=== PATIENT | female | born 1960 | race Caucasian/White ===

== ENCOUNTER → 2018-04-07 09:35 | Outpatient (CLI) | payer OTHER, SELFPAY ==
--- NOTE | 2018-04-07 | DI.RAD.S_ITS ---
PROCEDURE: XR KNEE LT 3V INDICATIONS: LEFT KNEE PAIN TECHNIQUE: 3 views of the knee were acquired. COMPARISON: None. FINDINGS: Bones: No fractures or dislocations. No suspicious bony lesions. There is minimal osteophytosis. Joint spaces appear grossly preserved. Soft tissues: No joint effusion. No suspicious soft tissue calcifications. IMPRESSION: 1. Minimal osteophytosis compatible with minimal osteoarthritic changes. 2. No fracture or dislocation. Dictated by: Sammy Dutton M.D. on 04/07/2018 at 11:04 Approved by: Sammy Dutton M.D. on 04/07/2018 at 11:05
== END ==
PROVIDERS: Visit Provider Chiropractor
DX: M25.562 Pain in left knee (principal)
CPT/HCPCS: 73562

== ENCOUNTER → 2018-07-23 13:39 | Outpatient (CLI) | payer OTHER, SELFPAY ==
--- NOTE | 2018-07-23 | DI.MRI.S_ITS ---
PROCEDURE: MR KNEE LT WO CON INDICATIONS: LT KNEE INJURY TECHNIQUE: Noncontrast sagittal PD fast spin echo and T2 fast spin echo with fat saturation, sagittal 3-D FLASH with fat saturation; coronal T1 spin echo and PD fast spin echo with fat saturation, and axial PD fast spin echo with fat saturation through the knee. COMPARISON: [facility], CR, XR KNEE LT 3V, 04/07/2018, 9:38. FINDINGS: Image quality: Excellent. Menisci: Lateral meniscal tear involving posterior horn and body. There is also near-complete extrusion of the body. Abnormal signal extends to the undersurface of the posterior horn of the superior articular surface free margin of the body. Medial meniscal tear involving the posterior horn and body with abnormal signal extending to the undersurface of the posterior horn and superior articular surface of the body. There is partial extrusion. 6 mm parameniscal cyst on image 10 series 7 Cruciate ligaments: Partial rupture of the anterior cruciate ligament however this is technically age indeterminate. The posterior cruciate ligament appears intact. Medial structures: The medial collateral ligament appears intact. The posterior oblique ligament, semimembranosus tendon insertions, oblique popliteal ligament, and meniscocapsular junction appear intact. Visualized portions of the pes anserinus tendons appear normal. No abnormal bursal fluid. Lateral structures: There is susceptibility artifact present in the region of the lateral patellofemoral ligament of unknown etiology, possibly postsurgical changes, versus foreign bodies. The lateral collateral ligament, long and short heads of the biceps femoris tendon appear intact. The popliteus tendon appears normal; the popliteofibular ligament appears intact. The posterosuperior and anteroinferior popliteomeniscal fascicles appear intact. The arcuate and fabellofibular ligaments appear intact, on either side of the lateral inferior geniculate artery. Iliotibial band appears normal. Anterior structures: The quadriceps and patellar tendons appear intact although there is low-grade proximal patellar tendinopathy. Patellar alignment is normal. No femoral trochlear dysplasia or ventral trochlear prominence. No edema in the infrapatellar fat pad. Bones and cartilage: No bone marrow contusions or fractures. Within the medial compartment, there is no definite focal articular cartilage loss. Within the lateral compartment, there is diffuse partial-thickness loss of the femoral and tibial articular cartilage. Within the patellofemoral compartment, there is diffuse partial-thickness loss of the femoral trochlear and patellar cartilage Joint space: There is physiologic knee joint fluid. Tiny 1-2 cm cephalocaudad dimension Conley's cyst. IMPRESSION: Lateral meniscal tear involving the posterior horn and body. Near-complete extrusion of the body. Medial meniscal tear also involving the posterior horn and body with partial extrusion. 6 mm parameniscal cyst adjacent to the posterior horn High-grade partial rupture of the anterior cruciate ligament although this could be acute or chronic; please correlate with exam findings and history. Mild proximal patellar tendinopathy. Tiny Conley cyst. Mild joint degeneration. Dictated by: Tito Eden M.D. on 07/23/2018 at 14:11 Approved by: Tito Eden M.D. on 07/23/2018 at 14:20
== END ==
PROVIDERS: PCP Orthopaedic Surgery Foot and Ankle Surgery; Visit Provider Orthopaedic Surgery Foot and Ankle Surgery
DX: S83.242A Other tear of medial meniscus, current injury, left knee, initial encounter (principal); S83.282A Other tear of lateral meniscus, current injury, left knee, initial encounter; S83.512A Sprain of anterior cruciate ligament of left knee, initial encounter; M17.12 Unilateral primary osteoarthritis, left knee; M67.864 Other specified disorders of tendon, left knee
CPT/HCPCS: 73721

== ENCOUNTER → 2022-04-22 13:14 | Outpatient (CLI) | payer OTHER, SELFPAY ==
--- NOTE | 2022-04-22 13:15 | DI.MRI.S_ITS ---
PROCEDURE: MR LUMBAR SPINE WO CON INDICATIONS: Lumbar radiculopathy history of L3 fracture TECHNIQUE: Noncontrast sagittal T1 spin echo and T2 fast echo, sagittal STIR, and T2 fast spin echo through the lumbar spine. In cases with scoliosis, additional coronal T2 fast spin echo may be performed. COMPARISON: None. FINDINGS: Image quality: This examination is limited by involuntary motion artifact. Alignment and Curvature: Mild dextroconvex scoliotic curvature is seen. Minimal anterolisthesis is seen at T11-T12: There is mild retrolisthesis seen at the L2-L3 level. Minimal retrolisthesis is seen at L4-L5. Minimal anterolisthesis is seen at L5-S1. Bone Marrow: Marrow is of normal overall signal. No acute vertebral body compression fractures. Spinal Cord: Conus medullaris terminates at the L1-L2 level. Visualized cord demonstrates normal signal and size. Note is made of fatty infiltration of the filum terminalis a, as seen on series 4, image 10 and on series 7, image 20. No associated cord tethering is seen. Paraspinous Soft Tissues: No paravertebral masses. T11-T12: Mild loss of disc height is seen. The disc signal is relatively well preserved. There is at least moderate right-sided and moderate left-sided facet hypertrophy seen. There is at least moderate right-sided and no significant left-sided neural foraminal narrowing. No significant central canal narrowing is seen. T12-L1: Normal appearance. L1-L2: Normal appearance. L2-L3: Moderate loss of disc height is seen. Loss of disc signal is seen. Moderate generalized disc bulge is seen. Bridging endplate osteophytes can be seen on the left, as on series 6, image 7. There is mild right-sided and tetq-nm-fjhopisd left-sided facet hypertrophy. There is gfsl-[id number]-[id number] right-sided and moderate to severe left-sided neural foraminal narrowing. There is a degree of compression seen upon the exiting left L2 nerve root. Moderate central canal narrowing is seen. L3-L4: Mild loss of disc height is seen. Loss of disc signal is seen. Reactive marrow endplate changes are seen, which demonstrate mixed T1 weighted and T2-weighted signal, and are attributed to a combination of edema and fatty metaplasia (Modic type I and Modic type II changes). Moderate generalized disc bulge is seen. There is mild right-sided and moderate left-sided facet hypertrophy seen. There is at least moderate right-sided and moderate to severe left-sided neural foraminal narrowing. There is a degree of compression seen upon the exiting left L3 nerve root. Moderate central canal narrowing is seen. L4-L5: Moderate loss of disc height is seen. Loss of disc signal is seen. Reactive marrow endplate changes are seen, which are hyperintense on T1-weighted and T2-weighted imaging and most consistent with fatty metaplasia (Modic type II changes). Moderate disc bulge is seen, which is eccentric to the right. At least moderate facet hypertrophy is seen. There is moderate left-sided and moderate to severe right-sided neural foraminal narrowing. There is a degree of compression seen upon the exiting right L4 nerve root. Mild to moderate central canal narrowing is seen. L5-S1: Moderate to severe loss of disc height and disc signal can be seen. Reactive marrow endplate changes are seen, which demonstrate mixed T1 weighted and T2-weighted signal, and are attributed to a combination of edema and fatty metaplasia (Modic type I and Modic type II changes). Moderate generalized disc bulge is seen. Mild to moderate facet hypertrophy is seen. There is swfb-jn-cjotqozd left-sided and at least moderate right-sided neural foraminal narrowing. There is a minimal degree of compression seen upon the exiting right L5 nerve root. No significant central canal narrowing is seen. IMPRESSION: Multiple levels of relatively prominent lumbar spine degenerative change can be seen. Several sites of significant neural foraminal narrowing can be seen, with associated exiting nerve root compression. Mild dextroconvex scoliotic curvature is seen. Dictated by: Tyrell Fisher M.D. on 04/22/2022 at 15:08 Approved by: Tyrell Fisher M.D. on 04/22/2022 at 15:14
== END ==
PROVIDERS: PCP Naturopath; Referring Provider Physical Medicine & Rehabilitation; Visit Provider Physical Medicine & Rehabilitation
DX: S32.030A Wedge compression fracture of third lumbar vertebra, initial encounter for closed fracture (principal); M47.26 Other spondylosis with radiculopathy, lumbar region; M48.061 Spinal stenosis, lumbar region without neurogenic claudication; M41.9 Scoliosis, unspecified
CPT/HCPCS: 72148

== ENCOUNTER 2022-09-13 10:07 | Outpatient (CLI) | payer OTHER, SELFPAY ==
[2022-09-13] VITALS (9 sets, daily range): BP systolic 152–170; BP diastolic 83–96; PULSE 66–79; RESP 16–21; TEMP 36.6; O2SAT 97–100
--- NOTE | 2022-09-13 10:08 | DI.RAD.S_ITS ---
PROCEDURE: PAIN L INTERLAMINAR/CAUDAL INJ INDICATIONS: SPONDYLOSIS COMPARISON: None. FINDINGS: Fluoroscopic spot filming was performed to verify placement of spinal needles at the lower lumbar level(s), as labeled on the films. Appropriate location(s) of the needle tip(s) was confirmed by injection of iodinated contrast. IMPRESSION: Needle placement as above Dictated by: Chaparro Marcano M.D. on 09/13/2022 at 12:44 Transcribed by: IRIS on 09/13/2022 at 12:45 Approved by: Chaparro Marcano M.D. on 09/13/2022 at 16:45
[2022-09-13] MEDS: MIDAZOLAM 2 MG/2 ML VIAL IV (11:22)
[2022-09-13] MEDS: BUPIVACAINE 0.25% (PF) VIAL 5 ML SUBCUT (11:27)
[2022-09-13] MEDS: BETAMETHASONE 30 MG/5 ML MDV 6 MG INJ (11:27)
[2022-09-13] MEDS: DEXAMETHASONE 10 MG/ML VIAL 20 MG INJ (11:28)
[2022-09-13] MEDS: IOPAMIDOL 15 ML VIAL 3 ML INJ (11:29)
--- NOTE | 2022-09-13 11:35 | P.PCN_ITS ---
Date/Time/Diagnoses Date of procedure: 09/13/22 Time of procedure: 11:35 Pre-procedure diagnosis: 1. HNP WITH RADICULAR FEATURES, 2. MULTILEVEL CENTRAL STENOSIS, Post-procedure diagnosis: same Procedure Notes Procedure: 1. FLUOROSCOPICALLY GUIDED CONTRAST CONTROLLED INTERLAMINAR EPIDURAL STEROID INJECTION -L4/5 Indications: Sharri is referred by Dr. Leblanc for treatment of Bilateral Foraminal Stenosis R>L LE symptoms. Physician: Lokesh Meza Total Fluoroscopy time (seconds): 6 Total sedation minutes: 10 Complications: none Procedure in detail & Post-procedure care: FINDINGS Multilevel Central Spinal Stenosis with Nerve Root Compression DESCRIPTION OF PROCEDURE Fluoroscopically guided, contrast-controlled L4/5 translaminar epidural steroid injection. Following review of allergy and review of potential side effects and complications, including, but not necessarily limited to, infection, allergic reaction, local tissue breakdown, temporary as well as permanent nerve injury, paralysis, stroke and possible , the patient indicated that the patient understood and agreed to proceed. An informed consent document was signed by the patient, witnessed by a nurse, and placed in the patient's chart. Additionally, other treatment options including modalities, medications, and physical therapy were reviewed with the patient. After review of previous anaesthesic history and IV conscious sedation the patient was deemed safe to proceed with today?s procedure with IV conscious sedation as ASA class II designation. Safety time-out was performed to confirm patient ID, procedure to be performed and site of procedure. IV sedation was accomplished with a combination of 2mg of Versed was administered by the RN after DO order, titrated to patient comfort during the course of the procedure while the patient remained responsive to all verbal commands In the prone position, following sterile prep and drape of the lumbar region, the L4/5 translaminar space was identified fluoroscopically. The skin was anesthetized via a 25-gauge, 1.5inch needle with 1% lidocaine solution. At this point, a 22-gauge short bevel spinal needle was atraumatically introduced and advanced under fluoroscopic guidance into the region of the L4/5 translaminar space. Depth was confirmed on lateral view. Radiological data, including multiple fluoroscopic views of the lumbar spine, reveal a spinal needle at the L4/5 translaminar space. Lateral views then show placement of the needle in the epidural space. Subsequent views show contrast material flowing superiorly and inferiorly in the epidural space. No vascular or intrathecal uptake is observed. At this point, using loss of resistance technique with saline and air, the epidural space was entered. This was confirmed following negative aspiration with injection of approximately 1.5cc of Isovue 200, showing excellent epidural flow without vascular or intrathecal uptake. At this point, 1cc of 1% lidocaine solution combined with 3cc or 20mg of dexamethasone and 6mg betamethasone was injected without incident. The patient tolerated the procedure well without signs or symptoms of complications prior to transfer to the recovery area continued monitoring without incident. The patient was then transferred to the recovery area where they were observed for an appropriate period of time after the injection. The patient reported a VAS score of 6 prior to the procedure and a post- procedure VAS of 0. POST OP INSTRUCTIONS The patient was provided a Pain Log to continue to record their response to the target-specific procedure prior to follow-up visit with their referring physician. Additionally, specific post-injection care instructions and a contact number to our office were provided if concerns arise regarding possible complications associated with the procedure are suspected.
== END 2022-09-13 11:55 | disposition home or self-care (01) ==
PROVIDERS: PCP Naturopath; Referring Provider Physical Medicine & Rehabilitation; Visit Provider Physical Medicine & Rehabilitation
DX: M48.061 Spinal stenosis, lumbar region without neurogenic claudication; M51.16 Intervertebral disc disorders with radiculopathy, lumbar region
CPT/HCPCS: 62323; 99152; J0702; J1100; J2250; J3490

== ENCOUNTER 2023-01-12 09:49 | Outpatient (CLI) | payer OTHER, SELFPAY ==
[2023-01-12] VITALS (9 sets, daily range): BP systolic 138–178; BP diastolic 66–104; PULSE 65–76; RESP 14–22; TEMP 36.4; O2SAT 98–100
--- NOTE | 2023-01-12 09:50 | DI.RAD.S_ITS ---
PROCEDURE: PAIN L/SI FACET INJ/BLK 1STL INDICATIONS: SPONDYLOSIS COMPARISON: [facility], , PAIN L INTERLAMINAR/CAUDAL INJ, 09/13/2022, 11:26. FINDINGS: Fluoroscopic spot filming was performed to verify placement of spinal needles on the right at the L4, L5, and S1 level(s), as labeled on the films. Appropriate location(s) of the needle tip(s) was confirmed by injection of iodinated contrast. IMPRESSION: Intraprocedural examination within normal limits. Dictated by: Tyrell Fisher M.D. on 01/12/2023 at 15:42 Approved by: Tyrell Fisher M.D. on 01/12/2023 at 15:42
[2023-01-12] MEDS: MIDAZOLAM 2 MG/2 ML VIAL IV ×2 (10:35→10:45)
[2023-01-12] MEDS: IOPAMIDOL 15 ML VIAL 3 ML INJ (10:40)
[2023-01-12] MEDS: LIDOCAINE 1% 20 ML 5 ML INJ (10:40)
[2023-01-12] MEDS: BUPIVACAINE 0.5% (PF) 10 ML VIAL 5 ML INJ (10:41)
--- NOTE | 2023-01-12 10:53 | PM.PROC.IR.1 ---
Date/Time/Diagnoses Date of procedure: 01/12/23 Time of procedure: 10:53 Pre-procedure diagnosis: 1. FACET ARTHROPATHY Post-procedure diagnosis: same Procedure Notes Procedure: 1. Right L4, L5 and S1 MB BLOCKS LA Indications: Libra/Ne is referred by Dr. Leblanc for treatment of Right Axial LBP. Physician: Lokesh Meza Total Fluoroscopy time (seconds): 8 Total sedation minutes: 14 Complications: none Procedure in detail & Post-procedure care: DESCRIPTION OF PROCEDURE Fluoroscopically guided, contrast-controlled right L4, L5 and S1 medial branch blocks with 0.5cc of 0.5% Marcaine. Following review of allergy and review of potential side effects and complications, including, but not necessarily limited to, infection, allergic reaction, local tissue breakdown, nerve injury, paralysis, stroke and possible , the patient indicated that the patient understood and agreed to proceed. An informed consent document was signed by the patient, witnessed by a nurse, and placed in the patient's chart. After review of previous anaesthesic history and IV conscious sedation the patient was deemed safe to proceed with today?s procedure with IV conscious sedation as ASA class II designation. Safety time-out was performed to confirm patient ID, procedure to be performed and site of procedure. IV sedation was accomplished with a combination of 4mg of Versed was administered by the RN after DO order, titrated to patient comfort during the course of the procedure while the patient remained responsive to all verbal commands In the prone position, following sterile prep and drape of the lumbar region, the right L4, L5 and S1 anatomical location of the medial branch of the dorsal ramus was identified fluoroscopically. Subsequently an anesthetic skin wheal using 1% lidocaine solution was initiated at each of the anatomical spots. Subsequently then a 22-gauge 3.5-inch spinal needle was atraumatically introduced and advanced under fluoroscopic guidance at each of the corresponding sites at the right L4, L5 and S1 MB. After negative aspiration, 0.2 cc of Isovue 200 was injected, confirming placement without vascular or intrathecal uptake. Subsequently then 0.5 cc of 0.5% Marcaine solution was injected at each of the corresponding sites at the right L4, L5 and S1 medial branch locations. The patient tolerated the procedure well without signs or symptoms of complications. The procedure tolerated the procedure well without signs or symptoms of complications prior to transfer to the recovery area continued monitoring without incident. Post-procedure, the patient was monitored initiating provocative activities to measure the amount of relief from block of the facetogenic pain. The patient reported a VAS of 7 prior to the procedure and a post-procedure VAS of 1. It has been a pleasure to assist in the diagnostic and therapeutic care of your patient. POST OP INSTRUCTIONS The patient was provided with a Pain Log to complete over the next several hours and subsequent days prior to the patient's follow up with the ordering physician. If the patient has cruise agent relief to the solution applied, then they may be a candidate for medial branch rhizotomy. The patient is aware, was provided, once again, with a Pain Log and will follow up with the referring physician for review and clinical correlation.
== END 2023-01-12 11:17 | disposition home or self-care (01) ==
PROVIDERS: PCP Naturopath; Referring Provider Physical Medicine & Rehabilitation; Visit Provider Physical Medicine & Rehabilitation
DX: M47.816 Spondylosis without myelopathy or radiculopathy, lumbar region (principal); M47.817 Spondylosis without myelopathy or radiculopathy, lumbosacral region
CPT/HCPCS: 64493; 64494; 64495; 99152; J2250

== ENCOUNTER → 2024-11-11 14:09 | Outpatient (CLI) | payer OTHER, SELFPAY ==
--- NOTE | 2024-11-11 14:10 | DI.RAD.S_ITS ---
PROCEDURE: XR DEXA AXIAL SKELETON INDICATIONS: screening exam COMPARISON: None. FINDINGS: Lumbar Spine: Bone mineral density 1.111 g/cm2, T score 0.6. Left Femoral Neck: Bone mineral density 0.872 g/cm2, T score 0.2. Left Hip: Bone mineral density 1.030 g/cm2, T score 0.7. Fracture Risk Calculation (when applicable): 10-year fracture risk of a major osteoporotic fracture 6.4 percent and of a hip fracture 0.2 percent. (T score greater or equal to -1.0 to: NORMAL) (T score from -1.1 to -2.4: OSTEOPENIA) (T score less than or equal to -2.5: OSTEOPOROSIS) IMPRESSION: Normal--- recommend repeat DEXA as clinically indicated. Follow-up guidelines as follows: Osteoporosis: Consider a repeat DEXA and Vertebral Fracture Assessment (VFA) exam in 2 years or sooner if medically necessary, to reassess this patient's status. Osteopenia: Consider a repeat DEXA in 2-3 years to reassess this patient's status, or if there is a new clinical indication. Normal: Consider a repeat DEXA in 5 years or sooner, or if there is a new clinical indication. All treatment decisions require clinical judgment and consideration of individual patient factors, including patient preferences, comorbidities, previous drug use, risk factors not captured in the FRAX model (e.g., frailty, falls, vitamin D deficiency, increased bone turnover, interval significant decline in bone density ) and possible under- or over-estimation of fracture risk by FRAX. In addition, the NOF Guide recommends that FDA-approved medical therapies be considered in postmenopausal women and men age >= 50 years with a: * Hip or vertebral (clinical or morphometric) fracture * T-score of <=-2.5 at the spine or hip * Ten-year fracture probability by FRAX of >= 3% for hip fracture or >=20% for major osteoporotic fracture. Dictated by: You Loyola M.D. on 11/11/2024 at 19:18 Approved by: You Loyola M.D. on 11/11/2024 at 19:20
== END ==
LOC: RAD 14:10
PROVIDERS: PCP Student in an Organized Health Care Education/Training Program; Referring Provider Obstetrics & Gynecology; Visit Provider Obstetrics & Gynecology
DX: Z13.820 Encounter for screening for osteoporosis (principal)
CPT/HCPCS: 77080

== ENCOUNTER → 2025-03-14 10:02 | Outpatient (CLI) | payer OTHER, SELFPAY ==
--- NOTE | 2025-03-14 10:03 | DI.US.S_ITS ---
MM diagnostic mammo unilat RT, US breast RT limited: 03/14/2025 BI-RADS: 2 CLINICAL: 64-year old female for right diagnostic mammogram and right diagnostic breast ultrasound. Tyrer-Cuzick lifetime risk of 4.6%. No personal or first-degree family history of breast cancer. The patient presents for additional evaluation of an inconclusive screening mammogram. PRIOR EXAMS Outside priors 02/11/2025, 12/27/2023, , 04/10/2019. MAMMOGRAPHY TECHNIQUE: 2D and 3D (tomosynthesis) digital mammographic views obtained, with additional images as needed for full coverage. Current study was also evaluated with a Computer Aided Detection (CAD) system. ULTRASOUND TECHNIQUE Real-time [place] scale and color doppler imaging of the area of clinical interest was performed with image documentation. Right targeted breast ultrasound of the area of clinical interest and the axilla was performed with image documentation. DENSITY Right: B. There are scattered areas of fibroglandular density. MAMMOGRAPHY FINDINGS Right (finding-1): Lower Central, Anterior depth, measuring 0.4cm: Correlating with findings on screening mammogram there is a circumscribed, oval, equal- density mass present. ULTRASOUND FINDINGS Right (finding-1): Lower Inner at 5:00, 3.5 cm from nipple, measuring 0.5 x 0.3 x 0.4 cm: Correlating with findings on mammogram, there is a simple anechoic cyst. IMPRESSION: Right * No evidence of malignancy with benign findings. RECOMMENDATIONS Bilateral * Annual screening mammography. COMMENTS: Findings and recommendations were conveyed to the patient during today's evaluation. OVERALL ASSESSMENT CATEGORY BI-RADS-2: Benign. The [employer] recommends annual screening mammography beginning at age 40 for women with average risk of breast cancer. ELECTRONICALLY SIGNED: Isa Bernabe M.D. on 03/14/2025 at 06:51:40 PM PT Interpreting Station ID: [id number]
== END ==
LOC: MAMMO 10:02
PROVIDERS: PCP Student in an Organized Health Care Education/Training Program; Referring Provider Obstetrics & Gynecology; Visit Provider Obstetrics & Gynecology
DX: R92.8 Other abnormal and inconclusive findings on diagnostic imaging of breast (principal); N60.01 Solitary cyst of right breast
CPT/HCPCS: 76642; 77065; G0279